=== PATIENT | male | born 1960 | race Caucasian/White ===

== ENCOUNTER 2016-12-12 12:27 | Emergency (ER) | payer MEDICARE, OTHER ==
--- NOTE | ~2016-12-12 | CT16 ---
[facility] A Service of [facility] & [facility] RADIOLOGY TEXT RESULTS PATIENT: MJ HUGHES LOCATION: [facility] : 60 UNIT #: [id number] AGE: [address]: Anayeli Valadez MD SEX: M ORDER DR: [id number] [facility]. [place], [place] [address] [id number] E MR#: [id number] Acc #: [id number] NAME: MJ HUGHES : 1960 SEX: M STUDY DATE/TIME: 12/12/2016 17:53 UNIT: [facility] ROOM: STUDY DESCRIPTION: CT Angio Chest for PE Attending Physician: Anayeli Valadez M.D. Ordering Physician: Anayeli Valadez M.D. Primary Care Physician: Liborio Logan Jr., A.P.R.N. MEDICAL IMAGING REPORT This report is preliminary unless electronic signature is present EXAM CT angiogram chest with IV contrast HISTORY Shortness of air today. Difficulty breathing. Elevated D-dimer. FINDINGS IV contrast-enhanced CT angiogram of the chest was performed with 3D reconstructions. This CT exam was performed with one or more of the following radiation dose reduction techniques: automatic exposure control, adjustment of mA and/or kV according to patient size, and iterative reconstruction. Mild bilateral emphysema. Mild multifocal linear atelectasis or scarring. Incidental bilateral calcified granulomas. No pulmonary consolidation or pleural effusion. Fractures of the lateral left fourth, fifth, sixth, and seventh ribs, including 2 mm displacement of the distal fracture fragments of the sixth and seventh ribs. There is a nondisplaced fracture of the anterolateral left eighth rib. No pneumothorax. No pulmonary embolus. Normal bilateral pulmonary arterial enhancement. Normal caliber thoracic aorta. No adenopathy. No pericardial thickening or effusion. Small calcified mediastinal and right hilar nodes. IMPRESSION 1. No pulmonary embolus. 2. No active disease in the lungs. 3. Fractures of the lateral left fourth through eighth ribs including minimally displaced fractures of the sixth and seventh ribs. 4. No pneumothorax or pleural effusion. 5. Mild bilateral emphysema. No focal infiltrates. Dictated by... [facility] A Service of [facility] & [facility] RADIOLOGY TEXT RESULTS PATIENT: MJ HUGHES LOCATION: [facility] : 60 UNIT #: [id number] AGE: [address]: Anayeli Valadez MD SEX: M ORDER DR: Donis Ortega M.D. THIS IS AN ELECTRONICALLY VERIFIED REPORT Donis Ortega M.D. at 12/13/2016 2:18 PM DFL/aditya TD: 12/13/2016 09:19 JOB #: [id number] MEDICAL IMAGING REPORT COPY
--- NOTE | ~2016-12-12 | CR72 ---
[facility] A Service of [facility] RADIOLOGY TEXT RESULTS PATIENT: MJ HUGHES LOCATION: [facility] : 60 UNIT #: [id number] AGE: [address]: Anayeli Valadez MD SEX: M ORDER DR: [id number] [facility] [address] [place], [place] [address] [id number] E MR#: [id number] Acc #: [id number] NAME: MJ HUGHES : 1960 SEX: M STUDY DATE/TIME: 12/12/2016 13:22 UNIT: [facility] ROOM: STUDY DESCRIPTION: CR Chest Single View Portable Attending Physician: Anayeli Valadez M.D. Ordering Physician: Chris Medina D.O. Primary Care Physician: Liborio Logan Jr., A.P.R.N. MEDICAL IMAGING REPORT This report is preliminary unless electronic signature is present EXAM Portable chest, 12/12/2016 HISTORY Shortness of air and cough today. FINDINGS The cardiac size and pulmonary vascularity are normal. No airspace infiltrates or effusions. Small calcified right hilar nodes and small calcified granuloma in the right lung base. Recent or healing fracture lateral left fifth rib. Surgical jay in the left mid to upper lung. IMPRESSION 1. No active disease in the lungs. 2. Healing fracture lateral left fifth rib. Postop changes left mid and upper lung. Dictated by... Donis Ortega M.D. THIS IS AN ELECTRONICALLY VERIFIED REPORT Donis Ortega M.D. at 12/13/2016 2:14 PM VALERI/link TD: 12/13/2016 03:25 JOB #: [id number] MEDICAL IMAGING REPORT COPY
--- NOTE | ~2016-12-12 | EKG ---
PATIENT: MJ HUGHES UNIT #: [id number] Ventricular Rate: 64 BPM Atrial Rate: 64 BPM P-R Interval: 154 ms QRS Duration: 90 ms Q-T Interval: 410 ms QTC Calculation(Bezet): 422 ms P Sharps: 70 degrees Calculated R Sharps: 78 degrees Calculated T Sharps: 75 degrees Diagnosis Line: Normal sinus rhythm with sinus arrhythmia Diagnosis Line: Normal ECG Diagnosis Line: When compared with ECG of 29-NOV-2016 11:43, Diagnosis Line: No significant change was found Diagnosis Line: Confirmed by AUTUMN DIAZ MD ([id number]) on Diagnosis Line: 12/14/2016 4:03:06 PM INTERPRETING MD: EMILY MORRIS
[~2016-12-12 12:27] MED LIST: ADVAIR 5001 DISK W/D INH; ADVAIR INH; ALBUTEROL MININEB NEB; ALBUTEROL17 GM; BACTRIM DS TABL1 TAB PO; COMBIVENT MININEB INH; COMBIVENT RESPIM4 GM INH; HYDROCODON-ACE1 EAC5 PO; KEFLEX PO; LEVAQUIN PO; LEVAQUIN750 MG PO; LISINOPRIL20 MG PO; PREDNISONE PO; PREDNISONE10 MG PO; PROVENTIL INH; SYMBICORT 16010.2 GM; SYMBICORT INH; VENTOLIN5 MG/ML INH; VICODIN PO
[2016-12-12 13:24] LABS: BASOPHIL# 0.2 X10e3 (0-0.3); BASOPHIL% 1.4 % (0-2.5); DIFF IND NO; EOSINOPHIL# 0.5 X10e3 (0-0.7); EOSINOPHIL% 4.5 % (0.0-7.0); HEMATOCRIT 42.3 % (38.0-50.0); HEMOGLOBIN 14.5 gm/dL (13.0-16.0); LYMPHOCYTE# 1.6 X10e3 (1.0-3.5); LYMPHOCYTE% 13.5 % (17.0-45.0); MEAN CELL VOLUME 97.3 FL (83-96); MEAN CORPUSCULAR HEMOGLOBIN 33.3 PG (28-34); MEAN CORPUSCULAR HGB CONC 34.2 g/dL (30-36); MEAN PLATELET VOLUME 6.7 FL (6.5-11.5); MONOCYTE% 8.1 % (3.0-12.0); NEUTROPHIL# 8.7 X10e3 (1.5-7.1); NEUTROPHIL% 72.5 % (40-75); PLATELET COUNT 443 X10e3 (140-420); RED BLOOD COUNT 4.35 X10e (3.90-5.60); RED CELL DISTRIBUTION WIDTH 12.4 % (11.0-15.5)
[2016-12-12 13:49] LABS: ALBUMIN SERUM 4.4 g/dL (3.5-5.0); ALKALINE PHOSPHATASE 87 U/L (32-92); ALT (SGPT) 17 U/L (10-40); AST (SGOT) 25 U/L (10-42); BILIRUBIN, DIRECT 0.1 mg/dL (0.0-0.2); BILIRUBIN,INDIRECT 0.7 mg/dL (0.0-0.9); BILIRUBIN,TOTAL 0.8 mg/dL (0.2-2.0); BLOOD UREA NITROGEN 6 mg/dL (9-23); BUN/CREATININE RATIO 8.57; CALCIUM SERUM 9.6 mg/dL (8.4-10.2); CARBON DIOXIDE 31 mmol/L (22-31); CHLORIDE 93 mmol/L (100-111); CREATININE SERUM 0.7 mg/dL (0.6-1.4); GLOM FILT RATE Estimated ABOVE60 mL/min (>60); GLUCOSE FASTING 91 mg/dL (70-110); POTASSIUM 4.4 mmol/L (3.5-5.1); PROTEIN TOTAL SERUM 8.2 g/dL (6.0-8.3); SODIUM 133 mmol/L (135-145)
[2016-12-12 13:51] LABS: INR 0.9; PARTIAL THROMBOPLASTIN TIME 26.4 SECONDS (23.5-31.3); PROTHROMBIN TIME (PATIENT) 9.7 SECONDS (9.6-11.5)
[2016-12-12 14:02] LABS: POC - CKMB 3.8 ng/mL (0.0-7.9); POC - TROPONIN <0.05 ng/mL (<=0.05)
[2016-12-12 15:24] LABS: POC - CKMB 3.1 ng/mL (0.0-7.9); POC - TROPONIN <0.05 ng/mL (<=0.05)
== END 2016-12-12 19:15 | disposition home or self-care (01) ==
LOC: CED 12:27
PROVIDERS: Emergency Medicine
DX: J44.9 Chronic obstructive pulmonary disease, unspecified (principal); F17.200 Nicotine dependence, unspecified, uncomplicated; Z98.890 Other specified postprocedural states
CPT/HCPCS: 36415; 71010; 71275; 80048; 80076; 82553; 83880; 84484; 85025; 85379; 85610; 85730; 93005; 94640; 96374; 99284; J2930; Q9967

== ENCOUNTER 2017-02-13 05:38 | Inpatient (IN) | payer MEDICARE, OTHER ==
--- NOTE | ~2017-02-13 | EKG ---
PATIENT: MJ HUGHES UNIT #: [id number] Ventricular Rate: 78 BPM Atrial Rate: 78 BPM P-R Interval: 164 ms QRS Duration: 94 ms Q-T Interval: 412 ms QTC Calculation(Bezet): 469 ms P Bergen: 72 degrees Calculated R Bergen: 85 degrees Calculated T Bergen: 78 degrees Diagnosis Line: Normal sinus rhythm Diagnosis Line: Normal ECG Diagnosis Line: When compared with ECG of 12-DEC-2016 12:46, Diagnosis Line: Nonspecific T wave abnormality now evident in Diagnosis Line: Anterior leads Diagnosis Line: Confirmed by ADONAY VIERA MD ([id number]) on 02/13/2017 Diagnosis Line: 4:12:08 PM INTERPRETING MD: AYLIN MORRIS
--- NOTE | ~2017-02-13 | CO ---
Unit #: [id number] #: [id number] Patient: KRISHAN TOUSSAINT [id number] [facility]. [place], [place] [address] [id number] I MR#: [id number] NAME: KRISHAN TOUSSAINT ROOM: [facility] Age: 56 Sex: M Admission Date: 02/13/2017 : 1960 Attending Physician: Vimal Oliveros M.D. Primary Care Physician: Liborio Logan Jr., A.P.R.N. Requesting Physician: Vimal Oliveros M.D. CONSULTATION REPORT REASON FOR CONSULTATION This is a pulmonary consult on Krishan Toussaint, also known as Krishan Toussaint, who presents through the emergency room with increasing shortness of air. He was admitted this morning. HISTORY OF PRESENT ILLNESS Mr. Toussaint is a 56-year-old male with a history of known COPD, who presents with increasing shortness of air probably for about a week but then he became much worse yesterday actually. He does complain of a cough with some yellow sputum. He still smoked up until about two weeks ago. He really did not complain of any chest pain. He complains of anxiety. He has been on anxiety medicines in the past but not for a while. It may be that he gets them only when he is in the hospital. PAST MEDICAL HISTORY Past medical history is significant for asthma when he was younger, now COPD, history of a detached retina, hypertension, cataracts. PAST SURGICAL HISTORY Surgeries include hand surgery right hand. MEDICATIONS ON ADMISSION Medications on admission had included: 1. Hydrocodone 10/325 t.i.d. 2. Combivent MDI q.i.d. p.r.n. 3. Lisinopril 20 mg p.o. daily. 4. Symbicort 160/4.5 two puffs b.i.d. ALLERGIES No known drug allergies. SOCIAL HISTORY He smoked about a pack a day up until two weeks ago. FAMILY HISTORY Family history is significant for lung disease in both mother and father which was COPD/emphysema and unfortunately both of them have . REVIEW OF SYSTEMS On system review he complains of nausea. He does not have any leg swelling. No nausea, vomiting or diarrhea. No skin issues. All other systems are negative except as mentioned on exam. Unit #: [id number] #: [id number] Patient: KRISHAN TOUSSAINT PHYSICAL EXAMINATION GENERAL APPEARANCE: He presents as a middle-aged male in no acute distress. VITAL SIGNS: Temperature was 97.4, pulse 78, respiration 16, blood pressure 141/80, saturation 94% on 2 L. NECK: Without adenopathy. LUNGS: Examination of his lungs reveals his breathing is not labored. He has expiratory wheezes bilaterally throughout. HEART: Heart was regular. ABDOMEN: Abdomen was soft and bowel sounds are present. EXTREMITIES: Without edema. NEUROLOGIC: Neurologically he is awake and alert. DIAGNOSTIC STUDIES IMAGING: Chest x-ray to my exam revealed some increased interstitial markings, mostly upper lobes, subtle, no different from previously and no evidence of any acute infiltrate. LABORATORY: His blood gas was done on 2 L, pH was 7.38, pCO2 59. PO2 59. Serum chemistry significant for a BUN of 32, creatinine 0.7. White blood cell count was 12,000 and hemoglobin and hematocrit 15.4 and 45, platelets 367,000. IMPRESSION 1. Exacerbation of COPD. 2. Tobacco dependence. 3. Acute bronchitis. No evidence of pneumonia although he has some markings in his lungs which are somewhat chronic. In the past CT chest has been termed bilateral emphysema and linear atelectasis or scarring but not necessarily bronchiectasis. PLAN Will treat him with IV steroids and IV antibiotics. He is requesting anxiety medicines but I am going to hesitate since he was not on them at home. I told him he needs to talk to his primary doc about that, that I am not the appropriate person to be starting them particularly if this is going to be a habit. Dictated by... Arlene Beard/reva TD: 02/13/2017 16:14 JOB #: [id number] Unit #: [id number] #: [id number] Patient: KRISHAN TOUSSAINT CONSULTATION REPORT Page 1 of 1 X Vimal Oliveros MD CONSULTATION REPORT
--- NOTE | ~2017-02-13 | CR72 ---
[facility] A Service of [facility] & [facility] & [facility] RADIOLOGY TEXT RESULTS PATIENT: MJ HUGHES RAY LOCATION: [facility] [id number] : 60 UNIT #: [id number] AGE: [address]: Vimal Oliveros MD SEX: M ORDER DR: [id number] [facility] [address] [facility] [place], [place] [address] [id number] E MR#: [id number] Acc #: [id number] NAME: MJ HUGHES : 1960 SEX: M STUDY DATE/TIME: 02/13/2017 6:08 UNIT: [facility] ROOM: STUDY DESCRIPTION: CR Chest Single View Portable Attending Physician: Elaine Mei M.D. Ordering Physician: Ed Doctor [id number] [facility] Primary Care Physician: Liborio Logan Jr., A.P.R.N. MEDICAL IMAGING REPORT This report is preliminary unless electronic signature is present EXAM Portable chest 02/13/2017 HISTORY 56-year-old male with shortness of air and weakness beginning today. COMPARISON Chest 12/12/2016 FINDINGS Frontal chest demonstrates clear lungs. No pleural effusion or pneumothorax. Heart size and mediastinum are normal. Pulmonary vasculature normal. Subacute left rib fracture again noted. IMPRESSION No acute cardiopulmonary findings. Subacute left rib fracture again noted. Dictated by... Leo Castrejon M.D. THIS IS AN ELECTRONICALLY VERIFIED REPORT Leo Castrejon M.D. at 02/13/2017 8:09 AM Jesica TD: 02/13/2017 07:24 JOB #: [id number] MEDICAL IMAGING REPORT Page 1 of 1 COPY
--- NOTE | ~2017-02-13 | DS ---
Unit #: [id number] #: [id number] Patient: MJ TOUSSAINT [id number] [place], [place] [address] [id number] I MR#: [id number] NAME: MJ TOUSSAINT ROOM: [facility] Age: 56 Sex: M Admission Date: 02/13/2017 : 1960 Discharge Date: 02/18/2017 Attending Physician: Vimal Oliveros M.D. Referring Physician: Vimal Oliveros M.D. Primary Care Physician: Liborio Logan Jr., A.P.R.N. DISCHARGE SUMMARY FINAL DIAGNOSES 1. Acute exacerbation of chronic obstructive pulmonary disease. 2. Acute bronchitis due to Pseudomonas. 3. Anxiety syndrome. CONSULTANTS None. PROCEDURES None. HOSPITAL COURSE Mr. Toussaint is a 56-year-old male known to us with fairly severe COPD who presented with increasing shortness of air. On exam, he had expiratory wheezes bilaterally and physically felt short of air. Sputum culture was requested, and he was started on Rocephin, as well as DuoNeb, and Solu-Medrol was given 80 IV q.8. Solu-Medrol was decreased over time. I saw him on admission, and because of multiple admissions, instead of Rocephin, I switched him to cefepime. It turns out, that the sputum was positive for Pseudomonas and was pansensitive. He was switched to oral medications, including prednisone starting today and Levaquin starting today. He is doing fairly well and will be discharged today. DISCHARGE MEDICATIONS 1. Levaquin 750 mg p.o. daily. 2. Prednisone 40 mg p.o. daily decreasing by 10 mg every 3 days. 3. Hydrocodone with Tylenol t.i.d., which is a home medicine, and I have not written this. 4. Combivent Respimat, should be 2 puffs up to q.i.d. p.r.n. 5. Lisinopril 20 mg p.o. daily. 6. Symbicort 160/4.5 mcg 2 puffs b.i.d. ACTIVITIES As tolerated. DISCHARGE DIET As tolerated. NOTE: He is not on oxygen right now and his saturations are acceptable. It is noticeable, in the emergency room, saturation was 95% on 4 liters. Therefore, I will check with him about home oxygen. FOLLOWUP He will be following up with us in about 2-3 weeks. Unit #: [id number] #: [id number] Patient: MJ TOUSSAINT Dictated by... Arlene Beard TD: 02/21/2017 09:51 JOB #: [id number] DISCHARGE SUMMARY Page 1 of 1 X Vimal Oliveros MD X DISCHARGE SUMMARY
[2017-02-13 06:02] LABS: BASOPHIL# 0.2 X10e3 (0-0.3); BASOPHIL% 1.9 % (0-2.5); EOSINOPHIL# 1.6 X10e3 (0-0.7); EOSINOPHIL% 12.9 % (0.0-7.0); HEMATOCRIT 45.6 % (38.0-50.0); HEMOGLOBIN 15.4 gm/dL (13.0-16.0); LYMPHOCYTE# 3.3 X10e3 (1.0-3.5); LYMPHOCYTE% 27.1 % (17.0-45.0); MEAN CELL VOLUME 99.5 FL (83-96); MEAN CORPUSCULAR HEMOGLOBIN 33.7 PG (28-34); MEAN CORPUSCULAR HGB CONC 33.8 g/dL (30-36); MEAN PLATELET VOLUME 6.7 FL (6.5-11.5); MONOCYTE# 1.2 X10e3 (0-1.0); MONOCYTE% 9.9 % (3.0-12.0); NEUTROPHIL# 5.8 X10e3 (1.5-7.1); NEUTROPHIL% 48.2 % (40-75); PLATELET COUNT 367 X10e3 (140-420); RED BLOOD COUNT 4.59 X10e (3.90-5.60); RED CELL DISTRIBUTION WIDTH 12.5 % (11.0-15.5); WHITE BLOOD COUNT 12.1 X10e3 (4.0-10.5)
[2017-02-13 06:05] LABS: DIFF IND NO
[2017-02-13 06:13] LABS: POC - CKMB 3.7 ng/mL (0.0-7.9); POC - TROPONIN <0.05 ng/mL (<=0.05)
[2017-02-13 06:32] LABS: ALBUMIN SERUM 4.5 g/dL (3.5-5.0); BILIRUBIN, DIRECT 0.1 mg/dL (0.0-0.2); BILIRUBIN,INDIRECT 0.2 mg/dL (0.0-0.9); BILIRUBIN,TOTAL 0.3 mg/dL (0.2-2.0); CALCIUM SERUM 8.6 mg/dL (8.4-10.2); CREATININE SERUM 0.7 mg/dL (0.6-1.4); GLOM FILT RATE Estimated 105.5 mL/min (>60); POTASSIUM 3.6 mmol/L (3.5-5.1); PROTEIN TOTAL SERUM 7.3 g/dL (6.0-8.3)
[2017-02-13 06:41] LABS: ARTERIAL BLD GAS O2 SATURATION 86.3 % (90.0-100.0); ARTERIAL BLOOD GAS CARBOXY HB 2.7 %sat (0.0-9.0); ARTERIAL BLOOD GAS HCO3 34.9 mmol/L; ARTERIAL BLOOD GAS MET HB 0.7 %sat (0.0-2.0)
[2017-02-13 06:42] LABS: ARTERIAL BLOOD GAS ALLEN TEST NORMAL; ARTERIAL BLOOD GAS ART SITE RIGHT RADIAL; ARTERIAL BLOOD GAS DELIVERY NASAL CANNULA; ARTERIAL BLOOD GAS PCO2 59.1 mmHg (35.0-45.0); ARTERIAL BLOOD GAS PO2 59.9 mmHg (80.0-100); ARTERIAL DRAW? YES
[2017-02-13 06:49] LABS: INFLUENZA A NEG (NEG); INFLUENZA B NEG (NEG)
[2017-02-15 03:47] LABS: BASOPHIL% 0.1 % (0-2.5); HEMATOCRIT 41.4 % (38.0-50.0); HEMOGLOBIN 13.6 gm/dL (13.0-16.0); LYMPHOCYTE# 0.4 X10e3 (1.0-3.5); MEAN CELL VOLUME 101.7 FL (83-96); MEAN CORPUSCULAR HEMOGLOBIN 33.3 PG (28-34); MEAN CORPUSCULAR HGB CONC 32.7 g/dL (30-36); MEAN PLATELET VOLUME 7.6 FL (6.5-11.5); MONOCYTE# 0.6 X10e3 (0-1.0); MONOCYTE% 2.5 % (3.0-12.0); NEUTROPHIL# 21.1 X10e3 (1.5-7.1); NEUTROPHIL% 95.4 % (40-75); PLATELET COUNT 317 X10e3 (140-420); RED BLOOD COUNT 4.07 X10e (3.90-5.60)
[2017-02-15 03:48] LABS: WHITE BLOOD COUNT 22.2 X10e3 (4.0-10.5)
[2017-02-15 03:49] LABS: DIFF IND YES
[2017-02-15 04:09] LABS: PLATELET ESTIMATE NORMAL (NORMAL)
[2017-02-15 04:10] LABS: MICROCYTOSIS MOD
[2017-02-16 03:45] LABS: ALBUMIN SERUM 3.6 g/dL (3.5-5.0); BILIRUBIN,TOTAL 0.6 mg/dL (0.2-2.0); BUN/CREATININE RATIO 15.71; CALCIUM SERUM 9.2 mg/dL (8.4-10.2); CREATININE SERUM 0.7 mg/dL (0.6-1.4); GLOM FILT RATE Estimated 105.5 mL/min (>60)
[2017-02-17 09:08] LABS: BASOPHIL% 0.1 % (0-2.5); EOSINOPHIL% 0.1 % (0.0-7.0); HEMATOCRIT 42.4 % (38.0-50.0); LYMPHOCYTE# 0.8 X10e3 (1.0-3.5); LYMPHOCYTE% 4.6 % (17.0-45.0); MEAN CORPUSCULAR HEMOGLOBIN 33.4 PG (28-34); MEAN CORPUSCULAR HGB CONC 33.1 g/dL (30-36); MEAN PLATELET VOLUME 7.6 FL (6.5-11.5); MONOCYTE# 1.1 X10e3 (0-1.0); MONOCYTE% 6.4 % (3.0-12.0); NEUTROPHIL% 88.8 % (40-75); PLATELET COUNT 299 X10e3 (140-420); RED CELL DISTRIBUTION WIDTH 12.5 % (11.0-15.5); WHITE BLOOD COUNT 16.9 X10e3 (4.0-10.5)
[2017-02-17 09:09] LABS: DIFF IND NO
[2017-02-18 04:22] LABS: BASOPHIL% 0.1 % (0-2.5); EOSINOPHIL% 0.2 % (0.0-7.0); HEMATOCRIT 41.7 % (38.0-50.0); HEMOGLOBIN 13.9 gm/dL (13.0-16.0); LYMPHOCYTE# 0.7 X10e3 (1.0-3.5); LYMPHOCYTE% 4.7 % (17.0-45.0); MEAN CELL VOLUME 100.5 FL (83-96); MEAN CORPUSCULAR HEMOGLOBIN 33.5 PG (28-34); MEAN CORPUSCULAR HGB CONC 33.3 g/dL (30-36); MEAN PLATELET VOLUME 7.8 FL (6.5-11.5); MONOCYTE% 7.1 % (3.0-12.0); NEUTROPHIL# 12.8 X10e3 (1.5-7.1); NEUTROPHIL% 87.9 % (40-75); PLATELET COUNT 284 X10e3 (140-420); RED BLOOD COUNT 4.15 X10e (3.90-5.60); RED CELL DISTRIBUTION WIDTH 12.4 % (11.0-15.5); WHITE BLOOD COUNT 14.6 X10e3 (4.0-10.5)
[2017-02-18 04:24] LABS: DIFF IND NO
[2017-02-18] MEDS ORDERED: LEVAQUIN750 MG PO (18:11)
[2017-02-18] MEDS ORDERED: PREDNISONE PO (18:12)
== END 2017-02-18 18:54 | disposition home or self-care (01) | DRG 189 ==
LOC: CED 05:38 → C4C 07:35 → CEDOF 07:35 → CED 07:52 → CEDOF 07:52 → C4C 10:07
PROVIDERS: Internal Medicine Pulmonary Disease; Student in an Organized Health Care Education/Training Program
DX: J96.22 Acute and chronic respiratory failure with hypercapnia (principal); J44.0 Chronic obstructive pulmonary disease with (acute) lower respiratory infection; J44.1 Chronic obstructive pulmonary disease with (acute) exacerbation; J96.21 Acute and chronic respiratory failure with hypoxia; J20.9 Acute bronchitis, unspecified; F17.210 Nicotine dependence, cigarettes, uncomplicated; I10 Essential (primary) hypertension; B96.5 Pseudomonas (aeruginosa) (mallei) (pseudomallei) as the cause of diseases classified elsewhere
CPT/HCPCS: 36415; 36600; 71010; 80048; 80053; 80076; 82553; 82803; 84484; 85025; 87070; 87077; 87186; 87205; 87804; 93005; 94640; 94760; 96374; 99285; G0238; J0692; J0696; J1650; J2920; J2930; J3475